=== PATIENT | male | born 1935 | race Caucasian/White ===

== ENCOUNTER 2019-05-15 09:07 | Day surgery (SDC) | payer MEDICARE, OTHER ==
[2019-05-09 15:03] LABS: Basophils # (auto) 0.1 uL; Eosinophils # (auto) 0.3 uL; Eosinophils % (auto) 2.8 % (0.0-7.0); Hematocrit 31.7 % (41.0-53.0); Hemoglobin 10.6 g/dL (13.5-17.5); Lymphocytes # (auto) 1.2 uL; Mean Corpuscular Hemoglobin 31.4 pg (28.0-32.0); Mean Corpuscular Hgb Conc. 33.3 g/dL (32.0-36.0); Mean Corpuscular Volume 94.1 fL (80.0-100.0); Monocytes # (auto) 0.9 uL; Neutrophils # (auto) 6.7 uL; Neutrophils % (auto) 73.2 % (37.0-80.0); Nucleated Red Blood Cells % 0.1 %; Platelet Count (auto) 213 10^3/uL (140-450); Red Blood Cells 3.37 10^6/uL (4.5-5.90); Red Cell Distribution Width 15.9 % (11.8-14.3); White Blood Cell 9.1 10^3/uL (4.4-10.8)
[2019-05-09 15:17] LABS: INR 0.99 (0.9-1.15); Partial Thromboplastin Time 28.1 sec (23.64-32.05)
[2019-05-09 15:23] LABS: Urine Bacteria NONE SEEN /hpf (None Seen); Urine Blood Negative /uL (Negative); Urine Hyaline Cast MOD /lpf (0 - 2); Urine Specific Gravity 1.016 (1.001-1.035); Urine WBC 6 /hpf (0 - 3)
[2019-05-09 15:46] LABS: BUN/Creatinine Ratio 7.6; Bilirubin, Total 0.5 mg/dL (0.2-1.0); Total Protein 7.5 g/dL (6.4-8.2)
[~2019-05-15] VITALS: Ht 167.6 cm; Wt 68.9 kg
[~2019-05-15 09:07] MED LIST: ASPI325T4 PO; FERR-7 PO; FURO40TA4 PO; LOVA40TA72 PO; MULTTAB PO; NIFE30TA76 PO; NITR0.4S29 SL
[2019-05-15] MEDS ORDERED: ceFAZolin 1GM/50ML 0 ML IV ONE (12:00)
[2019-05-15] MEDS ORDERED: CLINDAMYCIN 600MG IV 50 ML IV ONE (12:01)
[2019-05-15] MEDS ORDERED: SODIUM CHLORIDE LOCK 10 ML ONE (13:00)
[2019-05-15] MEDS ORDERED: PROPOFOL 10 MG/ML 20 ML IV ONE (13:00)
[2019-05-15] MEDS ORDERED: MIDAZOLAM HCL 1MG/1ML-2 ML VIAL ONE (13:00)
[2019-05-15] MEDS ORDERED: fentaNYL CITRATE 100 MCG/2 ML VL ONE (13:00)
[2019-05-15] MEDS ORDERED: ONDANSETRON HCL 4 MG/2 ML VIAL ONE (13:00)
[2019-05-15] MEDS ORDERED: fentaNYL CITRATE 100 MCG/2 ML VL IV PRN (13:15)
[2019-05-15] MEDS ORDERED: HYDROmorphone HCL 2 MG/ML VL IV PRN (13:15)
[2019-05-15] MEDS ORDERED: METOCLOPRAMIDE HCL 5MG/ml INJ 2ml VIAL IV PRN (13:15)
[2019-05-15] MEDS ORDERED: ROPIVACAINE 0.5% (5MG/ML) 20ML AMPULE IJ ONE (13:55)
[2019-05-15] MEDS ORDERED: NEOMYCIN-BACITRACIN-POLYM 15GM TOP OINT TOP ONE (13:55)
[2019-05-15 14:55] VITALS: BP 142/60
== END 2019-05-15 15:00 | disposition home or self-care (01) ==
LOC: SUR 09:07
PROVIDERS: ATTEND Podiatrist Foot & Ankle Surgery
DX: M21.622 Bunionette of left foot (principal); M25.1 Fistula of joint; I25.10 Atherosclerotic heart disease of native coronary artery without angina pectoris; I13.2 Hypertensive heart and chronic kidney disease with heart failure and with stage 5 chronic kidney disease, or end stage renal disease; N18.6 End stage renal disease; I50.9 Heart failure, unspecified; I25.2 Old myocardial infarction; D64.9 Anemia, unspecified; E78.5 Hyperlipidemia, unspecified; Z88.0 Allergy status to penicillin; Z99.2 Dependence on renal dialysis; Z98.890 Other specified postprocedural states; Z95.1 Presence of aortocoronary bypass graft; Z87.891 Personal history of nicotine dependence
CPT/HCPCS: 28110; 36415; 80053; 81001; 85025; 85610; 85730; 88304; 88311; 93005; J2250; J2405; J2704; J2795; J3010; J3490; L3260; J0690